=== PATIENT | male | born 1995 | race Two or more races ===

== ENCOUNTER 2019-01-07 21:09 | Emergency (ER) | payer SELFPAY ==
[~2019-01-07] VITALS: Ht 180.3 cm; Wt 86.2 kg
--- NOTE | 2019-01-07 23:33 | NUR ---
Patient discharged to home in stable conditon. Written and verbal after care instructions given. Patient verbalizes understanding of instructions.
== END 2019-01-07 23:35 | disposition home or self-care (01) ==
LOC: ER 21:09
DX: S00.83XA Contusion of other part of head, initial encounter (principal); W21.89XA Striking against or struck by other sports equipment, initial encounter; Y93.89 Activity, other specified; Y92.89 Other specified places as the place of occurrence of the external cause; Y99.8 Other external cause status
CPT/HCPCS: 70450; A4663